=== PATIENT | male | born 1945 | race Caucasian/White ===

== ENCOUNTER 2018-01-07 06:14 | Emergency (ER) | payer MEDICARE, OTHER, SELFPAY ==
[2018-01-07 06:24] VITALS: BP 134/87; PULSE 96; RESP 15; TEMP 37; O2SAT 100; BMI 29.5
--- NOTE | 2018-01-07 06:32 | ED.MALEGU ---
HPI - Male Genitourinary <Candy Escoto DO - Last Filed: 01/07/18 21:28> General Chief complaint: Urogenital-Male Stated complaint: has catheter, has blood in urine Time Seen by Provider: 01/07/18 06:25 Source: patient Mode of arrival: ambulatory Limitations: no limitations History of Present Illness HPI Narrative: Patient is a 72-year-old male with history of prostate cancer presenting with hematuria. He had urinary retention while on vacation in [place] he had Farrar catheter placed. This morning he noted gross blood in the Farrar bag. He gets waves of pain. He is followed at [facility] for his prostate cancer. Currently no treatment. Denies any anticoagulation treatment aspirin daily Related Data Home Medications Medication Instructions Recorded Confirmed CA PANTOTHENATE/FOLIC ACID/VIT 1 tab PO QDAY #0 10/13/10 (MULTIVITAMIN) Chondroitin Sulfate (#CHONDROITIN 1,200 mg PO Q DAY #0 10/13/10 SULFATE) Fish Oil (#EPA FISH OIL) 1,000 mg PO Q DAY #0 10/13/10 Glucosamine Sulfate (GLUCOSAMINE) 1,500 mg PO Q DAY #0 10/13/10 VITAMIN B COMPLEX/FOLATE (B-100 1 tab PO Q DAY #0 10/13/10 COMPLEX) aspirin [Ecotrin] 325 mg PO Q DAY #0 01/10/16 [CELERY SEED OIL] #0 05/19/17 [MAGNESIUM] 300 mg PO QDAY #0 05/19/17 [MILK THISTLE] 450 mg PO QDAY #0 05/19/17 [PROBIOTIC] #0 05/19/17 cholecalciferol (vitamin D3) #0 05/19/17 coenzyme Q10 [Co Q-10] 100 mg PO #0 05/19/17 vitamin B complex [B 1 tab PO QDAY #0 05/19/17 Complex-Vitamin B12] Previous Rx's Medication Instructions Recorded atorvastatin [Lipitor] 2,020 mg PO HS #90 tab 09/02/17 Allergies Allergy/AdvReac Type Severity Reaction Status Date / Time tetracycline [TETRACYCLINE] Allergy Unknown Unverified 09/23/17 12:17 ACID BLOCKERS PPI H2 AdvReac Unknown Uncoded 09/23/17 12:17 Review of Systems <DO Nicole Aguilar Last Filed: 01/07/18 21:28> Review of Systems GENERAL: Denies chills,fever HEENT: Denies throat pain RESPIRATORY: Denies dyspnea, cough, wheezing CARDIOVASCULAR: Denies chest pain, palpitations GASTROINTESTINAL: Denies nausea, vomiting : See HPI MUSCULOSKELETAL: Denies extremity pain, injury SKIN: No rash, no laceration, no pruritus NEUROLOGIC: Denies weakness, dizziness, headache, numbness 8 point review of systems is negative except for those stated above and HPI Exam <Candy Escoto DO - Last Filed: 01/07/18 21:28> Initial Vital Signs Initial Vital Signs: Vital Signs Temperature 98.6 F 01/07/18 06:24 Pulse Rate 96 H 01/07/18 06:24 Respiratory Rate 15 01/07/18 06:24 Blood Pressure 134/87 H 01/07/18 06:24 Pulse Oximetry 100 01/07/18 06:24 GENERAL: Well-appearing, well-nourished and in no acute distress. CARDIOVASCULAR: peripheral pulses in tact, cap refill <2 sec RESPIRATORY: No respiratory distress, speaks in full sentences without difficulty : Gross blood in Farrar catheter and bag. EXTREMITIES: Normal range of motion, no clubbing or edema. Neurovascularly intact NEUROLOGICAL: Cranial nerves II through XII grossly intact. Normal gait and speech. SKIN: Warm, dry, no petechiae, no rashes or lesions. <Jaren Swann DO - Last Filed: 01/07/18 07:15> Initial Vital Signs Initial Vital Signs: Vital Signs Temperature 98.6 F 01/07/18 06:24 Pulse Rate 96 H 01/07/18 06:24 Respiratory Rate 15 01/07/18 06:24 Blood Pressure 134/87 H 01/07/18 06:24 Pulse Oximetry 100 01/07/18 06:24 Course <Candy Escoto DO - Last Filed: 01/07/18 21:28> Vital Signs - 8 hr 01/07/18 06:24 Temperature 98.6 F Pulse Rate 96 H Respiratory Rate 15 Blood Pressure 134/87 H Pulse Oximetry 100 <Jaren Swann DO - Last Filed: 01/07/18 07:15> Vital Signs - 8 hr 01/07/18 06:24 Temperature 98.6 F Pulse Rate 96 H Respiratory Rate 15 Blood Pressure 134/87 H Pulse Oximetry 100 <Jaren Swann DO - Last Filed: 01/07/18 07:15> MDM Narrative Medical decision making narrative: Dr Swann: Received turned over from night provider. Patient has Farrar catheter in place that was placed just over 24 hr ago for urinary retention. Patient does have a history of prostate cancer. He returns today because he is having blood in his urine. The Farrar was flushed here in the ER and is now draining without problems. Patient denies taking any anticoagulation except for aspirin. He was advised to stop his aspirin for the next couple days. He is only taking this for cardiac prevention patient is anticipating a call from his urologist office today for a follow-up. We did discuss the fact that his bleeding is most likely the irritation from the Farrar on the inside of his bladder. He was instructed to increase his fluid intake. He was given return precautions. Will keep his Farrar in for now. Patient was given return precautions he expressed understanding and agreement with plan. Discharge Plan Departure Patient Disposition: Home, Self-Care Clinical Impression: Hematuria Discharge Date/Time: 01/07/18 07:29 Interventions: ED Discharge Assessment Last Done: 01/07/18 07:26 Instructions: DI for Hematuria Activity Restrictions/Additional Instructions: *You have been diagnosed with hematuria *What to do: Keep Farrar catheter in place, follow-up with your urologist to have it removed in about 1 week *Continue to take medications as directed *Follow up with your primary care provider in 2-3 days, call your urologist today to schedule follow-up appointment *Return to ER if you should have gross blood, inability this see through the tube, increased pain or any new, worsening or concerning symptoms Prescriptions: No Action CA PANTOTHENATE/FOLIC ACID/VIT (MULTIVITAMIN) 1 tab PO QDAY Qty: 0 RF: 0 Glucosamine Sulfate (GLUCOSAMINE) 1,500 mg PO Q DAY Qty: 0 RF: 0 VITAMIN B COMPLEX/FOLATE (B-100 COMPLEX) 1 tab PO Q DAY Qty: 0 RF: 0 Chondroitin Sulfate (#CHONDROITIN SULFATE) 1,200 mg PO Q DAY Qty: 0 RF: 0 Fish Oil (#EPA FISH OIL) 1,000 mg PO Q DAY Qty: 0 RF: 0 aspirin [Ecotrin] 325 MG tablet,delayed release (DR/EC) 325 mg PO Q DAY Qty: 0 RF: 0 vitamin B complex [B Complex-Vitamin B12] 1 EACH tablet 1 tab PO QDAY Qty: 0 RF: 0 coenzyme Q10 [Co Q-10] 100 MG capsule 100 mg PO Qty: 0 RF: 0 [MAGNESIUM] 300 mg PO QDAY Qty: 0 RF: 0 [MILK THISTLE] 450 mg PO QDAY Qty: 0 RF: 0 cholecalciferol (vitamin D3) 1,000 unit/spray [place],Suspension Qty: 0 RF: 0 [CELERY SEED OIL] Qty: 0 RF: 0 [PROBIOTIC] Qty: 0 RF: 0 atorvastatin [Lipitor] 20 MG tablet 2,020 mg PO HS Qty: 90 RF: 3 Referrals: Gino Sheridan MD [Non-Staff] - Chance Rosenbaum MD [Primary Care Provider] - ED Cosign/Signout <Candy Escoto DO - Last Filed: 01/07/18 21:28> Sign Out Provider Sign Out Attestation: signed out to dr swann. Still flushing Farrar catheter. Gross blood. No anticoagulation medication.
== END 2018-01-07 07:29 | disposition home or self-care (01) ==
PROVIDERS: Emergency Provider Emergency Medicine; PCP Family Medicine
DX: R31.9 Hematuria, unspecified (principal)
CPT/HCPCS: 51700; 99283

== ENCOUNTER → 2018-01-25 14:19 | Outpatient (CLI) | payer MEDICARE, OTHER, SELFPAY | PROVIDERS: PCP Family Medicine; Visit Provider Family Medicine | DX: R30.0 Dysuria (principal) | CPT/HCPCS: 87077; 87086; 87186 ==

== ENCOUNTER → 2018-02-26 15:52 | Outpatient (CLI) | payer MEDICARE, OTHER, SELFPAY ==
[2018-02-26 16:26] LABS: Bacteria Urine None Seen; RBC Urine None Seen (0-5/HPF)
[2018-02-26 16:40] LABS: Add Manual Diff / Slide Review NO; Basophils Percent Auto 0.7 % (0-2); Eosinophils Percent Auto 1.5 % (2-4); Hematocrit 44.2 % (41-53); Lymphocytes Percent Auto 34.9 % (25-40); Mean Corpuscular Hemoglobin 32.6 PG (26-34); Monocytes Percent Auto 10.4 % (3-14); Neutrophils Absolute Auto 3100 /uL (3000-5900); Neutrophils Percent Auto 52.5 % (50-75); Platelet Count 220 X10^3/uL (150-400); Red Cell Distribution Width 13.6 % (11.6-14.8); White Blood Cell Count 5.9 X10^3/uL (4.5-11.0)
[2018-02-26 17:00] LABS: Alanine Aminotransferase 49 IU/L (21-72); Albumin 4.8 g/dL (3.5-5.0); Albumin Globulin Ratio 1.8 (1.0-2.8); Alkaline Phosphatase 63 U/L (38-126); Aspartate Aminotransferase 40 IU/L (17-59); BUN Creatinine Ratio 16.4 (6-22); Blood Urea Nitrogen 18 mg/dL (9-20); Calcium 10.2 mg/dL (8.4-10.2); Carbon Dioxide 27 mmol/L (22-32); Chloride 104 mmol/L (98-107); Cholesterol 159 mg/dL (140-199); Estimated Glomerular Filt Rate > 60.0 mL/min (>60); Globulin 2.6 g/dL (1.7-4.1); Glucose 95 mg/dL (80-110); HDL Cholesterol 82 mg/dL (40-60); HEMOLYSIS 18 (0-50); LDL Cholesterol Calculated 55 mg/dL (<100); Potassium 5.1 mmol/L (3.4-5.1); Sodium 143 mmol/L (137-145); Total Protein 7.4 g/dL (6.3-8.2); Triglycerides 111 mg/dL (35-150)
[2018-02-26 17:27] LABS: Appearance Urine UA CLEAR; Bilirubin Urine UA NEGATIVE (NEGATIVE); Color Urine UA YELLOW; Glucose Urine UA NEGATIVE (Normal); Ketones Urine UA TRACE (NEGATIVE); Leukocyte Esterase Urine UA NEGATIVE (NEGATIVE); Nitrite Urine UA Negative (Negative); Occult Blood Urine UA NEGATIVE (Negative); Protein Urine UA NEGATIVE (Negative); Urobilinogen Urine UA 0.2 E.U./dL (0.2); pH Urine UA 6.5 (4.5-8.0)
[2018-02-26 17:29] LABS: Culture Indicated Urine Cult Not Indicated; Squamous Epithelial Cell Urine 0-1 /HPF; WBC Urine 1-5/HPF (0-5/HPF)
[2018-02-26 17:30] LABS: Thyroid Stimulating Hormone 2.08 uIU/mL (0.47-4.68)
[2018-02-26 18:04] LABS: Hep C Virus Ab w/Reflex Quant NEGATIVE s/c (NEGATIVE)
== END ==
PROVIDERS: PCP Family Medicine; Visit Provider Family Medicine
DX: C61 Malignant neoplasm of prostate (principal); E78.00 Pure hypercholesterolemia, unspecified; M10.9 Gout, unspecified; Z11.59 Encounter for screening for other viral diseases; Z13.29 Encounter for screening for other suspected endocrine disorder; Z51.81 Encounter for therapeutic drug level monitoring; Z86.73 Personal history of transient ischemic attack (TIA), and cerebral infarction without residual deficits
CPT/HCPCS: 36415; 80053; 80061; 81001; 84443; 85025; 86803

== ENCOUNTER → 2018-03-31 09:52 | Outpatient (CLI) | payer MEDICARE, OTHER, SELFPAY ==
--- NOTE | 2018-03-31 09:54 | DI.RAD.S_ITS ---
PROCEDURE: XR CHEST 2V INDICATIONS: chest pain r/t inspiration TECHNIQUE: 2 views of the chest were acquired. COMPARISON: [facility], , CHEST 2 VIEW, 05/26/2013, 8:00. FINDINGS: Surgical changes and devices: None. Lungs and pleura: No pleural effusions or pneumothorax. Lungs are clear. Mediastinum: Mediastinal contours are normal. Heart size is normal. Bones and chest wall: No suspicious bony abnormalities. Soft tissues appear unremarkable. IMPRESSION: Normal chest plain films. Stable from prior. Dictated by: Rey Alas M.D. on 03/31/2018 at 9:15 Approved by: Rey Alas M.D. on 03/31/2018 at 9:15
== END ==
PROVIDERS: PCP Student in an Organized Health Care Education/Training Program; Visit Provider Nurse Practitioner Family
DX: R07.89 Other chest pain (principal)
CPT/HCPCS: 71046

== ENCOUNTER 2018-04-13 22:05 | Emergency (ER) | payer MEDICARE, OTHER, SELFPAY ==
[2018-04-13 22:09] VITALS: BP 147/87; PULSE 68; RESP 20; TEMP 36.8; O2SAT 98
[2018-04-13 22:30] LABS: Add Manual Diff / Slide Review NO; Basophils Percent Auto 0.8 % (0-2); Eosinophils Percent Auto 1.9 % (2-4); Hematocrit 43.2 % (41-53); Hemoglobin 14.5 g/dL (13.5-17.5); Lymphocytes Percent Auto 33.3 % (25-40); Mean Corpuscular HGB Conc 33.6 % (30-36); Mean Corpuscular Hemoglobin 32.1 PG (26-34); Mean Corpuscular Volume 95.6 fL (80-100); Monocytes Percent Auto 9.3 % (3-14); Neutrophils Absolute Auto 3800 /uL (3000-5900); Neutrophils Percent Auto 54.7 % (50-75); Platelet Count 223 X10^3/uL (150-400); Red Blood Cell Count 4.52 X10^6/uL (4.5-5.9); Red Cell Distribution Width 13.4 % (11.6-14.8); White Blood Cell Count 6.9 X10^3/uL (4.5-11.0)
[2018-04-13 22:39] LABS: Alanine Aminotransferase 38 IU/L (21-72); Albumin 4.4 g/dL (3.5-5.0); Albumin Globulin Ratio 1.7 (1.0-2.8); Alkaline Phosphatase 55 U/L (38-126); Aspartate Aminotransferase 33 IU/L (17-59); Bilirubin Total 0.3 mg/dL (0.2-1.3); Blood Urea Nitrogen 20 mg/dL (9-20); Calcium 8.8 mg/dL (8.4-10.2); Carbon Dioxide 23 mmol/L (22-32); Chloride 105 mmol/L (98-107); Estimated Glomerular Filt Rate > 60.0 mL/min (>60); Globulin 2.6 g/dL (1.7-4.1); Glucose 102 mg/dL (80-110); HEMOLYSIS < 15 (0-50); Potassium 4.1 mmol/L (3.4-5.1); Sodium 141 mmol/L (137-145)
[2018-04-13 22:51] LABS: Troponin I < 0.012 ng/mL (0.01-0.034)
[2018-04-13 23:43] VITALS: BP 109/80; PULSE 80; RESP 19; O2SAT 95
--- NOTE | 2018-04-14 00:34 | ED_ITS ---
HPI - Arrhythmia/Palpitations General Chief Complaint: Arrhythmia/Palpitations Stated Complaint: Irregular heart beat Time Seen by Provider: 04/13/18 23:53 Source: patient Mode of arrival: ambulatory Limitations: no limitations History of Present Illness HPI narrative: Patient is a 73-year-old male who presents with heart palpitations. He said he had some off and on throughout the day since 0430 this morning. This morning it lasted for about an hour he had another episode lasted for about 45 min and any other shorter episode this evening. He has not had any in the ED he denies any lightheadedness dizziness or chest pain. He has no shortness of breath nausea or vomiting. MD complaint: palpitations Onset (ago): day(s) (1) Related Data Home Medications Medication Instructions Recorded Confirmed CA PANTOTHENATE/FOLIC ACID/VIT 1 tab PO QDAY #0 10/13/10 03/31/18 (MULTIVITAMIN) Chondroitin Sulfate (#CHONDROITIN 1,200 mg PO Q DAY #0 10/13/10 03/31/18 SULFATE) Fish Oil (#EPA FISH OIL) 1,000 mg PO Q DAY #0 10/13/10 03/31/18 Glucosamine Sulfate (GLUCOSAMINE) 1,500 mg PO Q DAY #0 10/13/10 03/31/18 aspirin [Ecotrin] 325 mg PO Q DAY #0 01/10/16 03/31/18 [CELERY SEED OIL] #0 05/19/17 03/31/18 [MAGNESIUM] 300 mg PO QDAY #0 05/19/17 03/31/18 [MILK THISTLE] 450 mg PO QDAY #0 05/19/17 03/31/18 [PROBIOTIC] #0 05/19/17 03/31/18 cholecalciferol (vitamin D3) #0 05/19/17 03/31/18 coenzyme Q10 [Co Q-10] 100 mg PO #0 05/19/17 03/31/18 vitamin B complex [B 1 tab PO QDAY #0 05/19/17 03/31/18 Complex-Vitamin B12] atorvastatin 20 mg tablet 20 mg PO DAILY 01/13/18 03/31/18 tamsulosin 0.4 mg capsule 0.4 mg PO DAILY 01/13/18 03/31/18 Previous Rx's Medication Instructions Recorded TDAP 0.5 ml IM ONCE #1 applictn 02/26/18 latanoprost 0.005 % eye drops 1 drop EYE-BOTH QPM #2.5 ml 02/26/18 methylprednisolone 4 mg tablets in 4 mg PO PER PKG DIR #21 each 03/31/18 a dose pack Allergies Allergy/AdvReac Type Severity Reaction Status Date / Time tetracycline [TETRACYCLINE] Allergy Severe Pustules Verified 03/31/18 09:11 on chest ACID BLOCKERS PPI H2 AdvReac Intermediate Joint Pain Uncoded 03/31/18 09:11 Review of Systems Review of Systems GENERAL: Denies chills, fatigue, malaise, fever, sweats, travel HEENT: Denies sinus pain, ear pain, sore throat, difficulty swallowing, neck pain RESPIRATORY: Denies dyspnea, cough, wheezing, hemoptysis, sputum. CARDIOVASCULAR:+ palpitations, see HPI GASTROINTESTINAL: Denies nausea, vomiting, abdominal pain, diarrhea, constipation, melena. : Denies dysuria, frequency, incontinence, hematuria, urinary retention, flank pain. MUSCULOSKELETAL: Denies weakness, joint pain, or bony pain SKIN: No rash, no erythema, no pruritus NEUROLOGIC: Denies weakness, dizziness, headache, numbness, change in speech, confusion PSYCHIATRIC: No concerning psychosocial issues. 12 point review of systems is negative except for those stated above and HPI [facility] Medical History Prostate cancer (Acute 2014) Diverticular disease (Chronic 2010) Elevated PSA (Chronic 2013) GERD (gastroesophageal reflux disease) (Chronic Unknown) Gout (Chronic 2014) Herpes (Chronic 1977) Sleep apnea (Chronic Unknown) Tinnitus of both ears (Chronic 2011) Ankle pain (Resolved 2014) Chickenpox (Resolved) Foot pain (Resolved 2014) Measles (Resolved) Mumps (Resolved) Peptic ulcer (Resolved Unknown) Shoulder pain (Resolved 2014) TIA (transient ischemic attack) (Resolved ~2017) Surgical History Hx of appendectomy (Resolved 2013) Hx of hernia repair (Resolved 1994) Hx of surgical procedure (Resolved 1985) Family History Mother Age: 94 Parkinsons disease Father No problems noted. Brother No problems noted. Sister No problems noted. Grandfather Parkinsons disease Social History Smoking Status: Former smoker alcohol intake: current Exam Initial Vital Signs Initial Vital Signs: Vital Signs Temperature 98.2 F 04/13/18 22:09 Pulse Rate 68 04/13/18 22:09 Respiratory Rate 20 04/13/18 22:09 Blood Pressure 147/87 H 04/13/18 22:09 Pulse Oximetry 98 04/13/18 22:09 GENERAL: Overall well-appearing male alert oriented x3 no acute distress HEENT: Head atraumatic,EOMI, pupils reactive, face symmetric, neck is supple no JVD CARDIOVASCULAR: Regular rate and rhythm without murmurs, rubs or gallops. RESPIRATORY: Breath sounds equal bilaterally, no wheezes rales or rhonchi. ABDOMEN: Soft, nontender. Normoactive bowel sounds all 4 quadrants. No guarding or rebound. EXTREMITIES: Normal range of motion, no clubbing or edema. Neurovascularly intact NEUROLOGICAL: Alert and oriented x4.Normal gait and speech. Cranial nerves II through XII grossly intact. SKIN: Warm, dry, no laceration, no petechiae, no rashes or lesions. Course Orders Ordered: ED Orders 04/13/18 22:11 EKG-12 Lead Stat Vital Signs - 8 hr 04/13/18 22:09 04/13/18 23:43 04/14/18 01:14 Temperature 98.2 F Pulse Rate 68 80 78 Respiratory Rate 20 19 15 Blood Pressure 147/87 H 118/64 Blood Pressure [Right Arm] 109/80 Pulse Oximetry 98 95 98 MDM - Arrhythmia/Palpitations Medical Records Attestation: I reviewed the patient's medical records. Lab Data Attestation: I reviewed the patient's lab results. Result diagrams: 04/13/18 20:15 04/13/18 20:15 Lab Results 04/13/18 04/13/18 Range/Units 20:15 20:15 WBC 6.9 (4.5-11.0) X10^3/uL RBC 4.52 (4.5-5.9) X10^6/uL Hgb 14.5 (13.5-17.5) g/dL Hct 43.2 (41-53) % MCV 95.6 (80-100) fL MCH 32.1 (26-34) PG MCHC 33.6 (30-36) % RDW 13.4 (11.6-14.8) % Plt Count 223 (150-400) X10^3/uL Neut % (Auto) 54.7 (50-75) % Lymph % (Auto) 33.3 (25-40) % [place] % (Auto) 9.3 (3-14) % Eos % (Auto) 1.9 L (2-4) % Baso % (Auto) 0.8 (0-2) % Neut # (Auto) 3800 (3813-0630) /uL Sodium 141 (137-145) mmol/L Potassium 4.1 (3.4-5.1) mmol/L Chloride 105 (98-107) mmol/L Carbon Dioxide 23 (22-32) mmol/L BUN 20 (9-20) mg/dL Creatinine 1.00 (0.66-1.25) mg/dL Estimated GFR > 60.0 (>60) mL/min BUN/Creatinine Ratio 20.0 (6-22) Glucose 102 (80-110) mg/dL Calcium 8.8 (8.4-10.2) mg/dL Total Bilirubin 0.3 (0.2-1.3) mg/dL AST 33 (17-59) IU/L ALT 38 (21-72) IU/L Alkaline Phosphatase 55 (38-126) U/L Troponin I < 0.012 (0.01-0.034) ng/mL Total Protein 7.0 (6.3-8.2) g/dL Albumin 4.4 (3.5-5.0) g/dL Globulin 2.6 (1.7-4.1) g/dL Albumin/Globulin Ratio 1.7 (1.0-2.8) ECG Data Attestation: I personally reviewed and interpreted this ECG as follows: Prior ECG tracings: available for review Interpretation: Sinus rhythm rate [address] changes appear interval 143 QRS 142 QTC 442 right bundle-branch block noted which is new from previous EKGs. No acute ischemia appreciated MDM Narrative Medical decision making narrative: Patient has not felt heart palpitations since he has been in the ED. No PVCs happen noted on the monitor. I discussed with him possible need for Holter monitor. Recommend he discuss this with his PCP. Discharge Plan Departure Patient Disposition: Home Clinical Impression: Heart palpitations Discharge Date/Time: 04/14/18 01:14 Interventions: ED Discharge Assessment Last Done: 04/14/18 01:14 Instructions: DI for Palpitations Activity Restrictions/Additional Instructions: *You have been diagnosed with Heart palpitations *What to do: caffeine and alcohol and dehydration can cause palpitations. may require a Holter monitor, please discuss this with your primary provider *Continue to take medications as directed *Follow up with your primary care provider in 2-3 days *Return to ER if you should have persistent ongoing heart palpitations, dizziness, lightheadedness, passing out any new, worsening or concerning symptoms Prescriptions: No Action latanoprost 0.005 % drops 1 drop EYE-BOTH QPM Qty: 2.5 RF: 0 TDAP 0.5 ml IM ONCE Qty: 1 RF: 0 methylprednisolone [Medrol (Bill)] 4 mg tablets,dose pack 4 mg PO PER PKG DIR Qty: 21 RF: 0 atorvastatin 20 mg tablet 20 mg PO DAILY RF: 0 tamsulosin 0.4 mg capsule 0.4 mg PO DAILY RF: 0 CA PANTOTHENATE/FOLIC ACID/VIT (MULTIVITAMIN) 1 tab PO QDAY Qty: 0 RF: 0 Glucosamine Sulfate (GLUCOSAMINE) 1,500 mg PO Q DAY Qty: 0 RF: 0 Chondroitin Sulfate (#CHONDROITIN SULFATE) 1,200 mg PO Q DAY Qty: 0 RF: 0 Fish Oil (#EPA FISH OIL) 1,000 mg PO Q DAY Qty: 0 RF: 0 aspirin [Ecotrin] 325 MG tablet,delayed release (DR/EC) 325 mg PO Q DAY Qty: 0 RF: 0 vitamin B complex [B Complex-Vitamin B12] 1 EACH tablet 1 tab PO QDAY Qty: 0 RF: 0 coenzyme Q10 [Co Q-10] 100 MG capsule 100 mg PO Qty: 0 RF: 0 [MAGNESIUM] 300 mg PO QDAY Qty: 0 RF: 0 [MILK THISTLE] 450 mg PO QDAY Qty: 0 RF: 0 cholecalciferol (vitamin D3) 1,000 unit/spray [place],Suspension Qty: 0 RF: 0 [CELERY SEED OIL] Qty: 0 RF: 0 [PROBIOTIC] Qty: 0 RF: 0
[2018-04-14 01:14] VITALS: BP 118/64; PULSE 78; RESP 15; O2SAT 98
== END 2018-04-14 01:14 | disposition home or self-care (01) ==
PROVIDERS: Emergency Provider Emergency Medicine; PCP Student in an Organized Health Care Education/Training Program
DX: R00.2 Palpitations (principal)
CPT/HCPCS: 36591; 80053; 84484; 85025; 93005; 99282; 99284

== ENCOUNTER 2018-06-08 00:49 | Emergency (ER) | payer MEDICARE, OTHER, SELFPAY ==
[2018-06-08 00:59] VITALS: BP 170/108; PULSE 95; RESP 18; O2SAT 96
--- NOTE | 2018-06-08 01:26 | PC.NURSE ---
Pt s/p prostate biopsy, blood is expected in urine, not sent for micro per [facility].
--- NOTE | 2018-06-08 01:31 | PC.NURSE ---
Pt tolerated placment of catheter well, returned 800ML urine, sample dipped for UA. Pt reports feeling much better, all bladder pressure is gone.
--- NOTE | 2018-06-08 01:38 | ED.MALEGU ---
HPI - Male Genitourinary General Chief complaint: Urogenital-Male Stated complaint: unable to urinate/painful Time Seen by Provider: 06/08/18 01:15 Source: patient Mode of arrival: ambulatory Limitations: no limitations History of Present Illness HPI Narrative: Is a 73-year-old male comes to the emergency department with complaint of inability to urinate. Patient states he has a history of prostate cancer and BPH. He had a prostate biopsy on the 23 of May, he had a lot of hematuria after that but it had improved. Patient states that he had several episodes of diarrhea today and then he noticed he was having more difficulty urinating. He states that this evening he does could urinate and it got worse and more uncomfortable. He has not had any fevers, he denies any nausea or vomiting. He denies any abdominal pain other than the urge to urinate. Patient has denies any flank pain. He denies any testicular pain. Patient has been seeing Urology [facility]. He has an appointment on June 18 with them for follow-up. Patient is already on Flomax for prior episode of urinary retention. He has not started any new medications. He takes atorvastatin for his lipids and no other daily medications. Related Data Home Medications Medication Instructions Recorded Confirmed CA PANTOTHENATE/FOLIC ACID/VIT 1 tab PO QDAY #0 10/13/10 03/31/18 (MULTIVITAMIN) Chondroitin Sulfate (#CHONDROITIN 1,200 mg PO Q DAY #0 10/13/10 03/31/18 SULFATE) Fish Oil (#EPA FISH OIL) 1,000 mg PO Q DAY #0 10/13/10 03/31/18 Glucosamine Sulfate (GLUCOSAMINE) 1,500 mg PO Q DAY #0 10/13/10 03/31/18 aspirin [Ecotrin] 325 mg PO Q DAY #0 01/10/16 03/31/18 [CELERY SEED OIL] #0 05/19/17 03/31/18 [MAGNESIUM] 300 mg PO QDAY #0 05/19/17 03/31/18 [MILK THISTLE] 450 mg PO QDAY #0 05/19/17 03/31/18 [PROBIOTIC] #0 05/19/17 03/31/18 cholecalciferol (vitamin D3) #0 05/19/17 03/31/18 coenzyme Q10 [Co Q-10] 100 mg PO #0 05/19/17 03/31/18 vitamin B complex [B 1 tab PO QDAY #0 05/19/17 03/31/18 Complex-Vitamin B12] atorvastatin 20 mg tablet 20 mg PO DAILY 01/13/18 06/08/18 tamsulosin 0.4 mg capsule 0.4 mg PO DAILY 01/13/18 06/08/18 Previous Rx's Medication Instructions Recorded TDAP 0.5 ml IM ONCE #1 applictn 02/26/18 latanoprost 0.005 % eye drops 1 drop EYE-BOTH QPM #2.5 ml 02/26/18 methylprednisolone 4 mg tablets in 4 mg PO PER PKG DIR #21 each 03/31/18 a dose pack Allergies Allergy/AdvReac Type Severity Reaction Status Date / Time Latex, Natural Rubber Allergy Severe Blister Verified 06/08/18 01:05 tetracycline [TETRACYCLINE] Allergy Severe Pustules Verified 06/08/18 01:05 on chest ACID BLOCKERS PPI H2 AdvReac Intermediate Joint Pain Uncoded 06/08/18 01:05 Review of Systems Review of Systems All systems reviewed & are unremarkable except as noted in HPI and below Constitutional Denies chills and Denies fever(s) Gastrointestinal Gastrointestinal: Denies abdominal pain, Denies change in bowel habits, Reports diarrhea (Several loose stools), Denies nausea and Denies vomiting Genitourinary Reports as per HPI, Reports hematuria (Resolved), Reports difficulty urinating, Denies genital pain, Denies dysuria, Denies flank pain, Denies penile discharge, Denies testicular pain, Denies urinary frequency, Reports urinary hesitancy and Denies urinary incontinence Musculoskeletal Denies back pain [facility] Medical History Prostate cancer (Acute 2014) Diverticular disease (Chronic 2010) Elevated PSA (Chronic 2013) GERD (gastroesophageal reflux disease) (Chronic Unknown) Gout (Chronic 2014) Herpes (Chronic 1977) Sleep apnea (Chronic Unknown) Tinnitus of both ears (Chronic 2011) Ankle pain (Resolved 2014) Chickenpox (Resolved) Foot pain (Resolved 2014) Measles (Resolved) Mumps (Resolved) Peptic ulcer (Resolved Unknown) Shoulder pain (Resolved 2014) TIA (transient ischemic attack) (Resolved ~2017) Surgical History Hx of appendectomy (Resolved 2013) Hx of hernia repair (Resolved 1994) Hx of surgical procedure (Resolved 1985) Social History Smoking Status: Former smoker alcohol intake: current Exam Narrative Exam Narrative: GENERAL: Alert and oriented x three, well-nourished, well-appearing male in moderate distress. HEENT: Head normocephalic, atraumatic, EOMI, pupils reactive, face symmetric, moist mucous membranes NECK: Supple, full range of motion CARDIOVASCULAR: Regular rate and rhythm without murmurs, rubs or gallops. RESPIRATORY: Breath sounds equal bilaterally, no wheezes rales or rhonchi. ABDOMEN: Soft, nontender. Normoactive bowel sounds all 4 quadrants. No guarding or rebound, rigidity, no mass : No CVA tenderness. Male: normal external examination, uncircumcised, no penile discharge or lesions, testicles non-tender, cremasteric reflex intact, no inguinal hernias noted. EXTREMITIES: Normal range of motion, no clubbing or edema. Neurovascularly intact NEUROLOGICAL: Cranial nerves II through XII grossly intact. Moving all extremities SKIN: Warm, dry, no petechiae, no rashes or lesions. Initial Vital Signs Initial Vital Signs: Vital Signs Pulse Rate 95 H 06/08/18 00:59 Respiratory Rate 18 06/08/18 00:59 Blood Pressure 170/108 H 06/08/18 00:59 Pulse Oximetry 96 06/08/18 00:59 Course Orders Ordered: ED Orders 06/08/18 01:15 Urine Microscopic Stat Vital Signs - 8 hr 06/08/18 00:59 Pulse Rate 95 H Respiratory Rate 18 Blood Pressure 170/108 H Pulse Oximetry 96 MDM - Male Genitourinary Lab Data Attestation: I reviewed the patient's lab results. Lab Results 06/08/18 Range/Units 01:15 Urine RBC 5-10/hpf H (0-5/HPF) Urine WBC 0-1/hpf (0-5/HPF) Urine Bacteria None seen (None) Ur Culture Indicated? Cult not indicated Micro UA Comment Not Reportable Urine Dip Bedside Urine Glucose Negative Bedside Urine Bilirubin - Negative Bedside Urine Ketone - Negative Urine Specific [place] 1.020 Bedside Urine Occult Blood ++ Bedside Urine pH 6.0 Bedside Urine Protein - Negative Bedside Urine Urobilinogen - Negative Bedside Urine Nitrite - Negative Bedside Urine Leukocytes - Negative Esterase MDM Narrative Medical decision making narrative: Farrar catheter was placed with about 500 cc of urine output. Patient felt much more comfortable. He is on Flomax, he has urologic follow-up. Asked to contact his urologist tomorrow or the following day for closer follow-up. Um so he can have removal of his catheter. Patient has had a leg bag before and feels comfortable with Farrar care. Discharge Plan Departure Patient Disposition: Home Clinical Impression: Acute urinary retention Discharge Date/Time: 06/08/18 02:25 Instructions: DI for Urinary Retention in Men Activity Restrictions/Additional Instructions: Follow-up with urologist, call or contact them for an appointment tomorrow or Thursday. Continue Flomax as prescribed. Return to the emergency department for recurrent obstruction, if you're Farrar catheter is not draining urine, new abdominal or pelvic pain, fevers, chest pain or shortness of breath, persistent vomiting or other new or concerning symptoms. Prescriptions: No Action latanoprost 0.005 % drops 1 drop EYE-BOTH QPM Qty: 2.5 RF: 0 TDAP 0.5 ml IM ONCE Qty: 1 RF: 0 methylprednisolone [Medrol (Bill)] 4 mg tablets,dose pack 4 mg PO PER PKG DIR Qty: 21 RF: 0 atorvastatin 20 mg tablet 20 mg PO DAILY RF: 0 tamsulosin 0.4 mg capsule 0.4 mg PO DAILY RF: 0 CA PANTOTHENATE/FOLIC ACID/VIT (MULTIVITAMIN) 1 tab PO QDAY Qty: 0 RF: 0 Glucosamine Sulfate (GLUCOSAMINE) 1,500 mg PO Q DAY Qty: 0 RF: 0 Chondroitin Sulfate (#CHONDROITIN SULFATE) 1,200 mg PO Q DAY Qty: 0 RF: 0 Fish Oil (#EPA FISH OIL) 1,000 mg PO Q DAY Qty: 0 RF: 0 aspirin [Ecotrin] 325 MG tablet,delayed release (DR/EC) 325 mg PO Q DAY Qty: 0 RF: 0 vitamin B complex [B Complex-Vitamin B12] 1 EACH tablet 1 tab PO QDAY Qty: 0 RF: 0 coenzyme Q10 [Co Q-10] 100 MG capsule 100 mg PO Qty: 0 RF: 0 [MAGNESIUM] 300 mg PO QDAY Qty: 0 RF: 0 [MILK THISTLE] 450 mg PO QDAY Qty: 0 RF: 0 cholecalciferol (vitamin D3) 1,000 unit/spray [place],Suspension Qty: 0 RF: 0 [CELERY SEED OIL] Qty: 0 RF: 0 [PROBIOTIC] Qty: 0 RF: 0 Referrals: Ingrid Costello DO [Primary Care Provider] -
[2018-06-08 01:53] LABS: Bacteria Urine None Seen
[2018-06-08 02:04] LABS: Culture Indicated Urine Cult Not Indicated; RBC Urine 5-10/HPF (0-5/HPF); WBC Urine 0-1/HPF (0-5/HPF)
[2018-06-08 02:24] VITALS: BP 135/82; PULSE 78; RESP 16; O2SAT 99
== END 2018-06-08 02:25 | disposition home or self-care (01) ==
PROVIDERS: Emergency Provider Emergency Medicine; PCP Family Medicine
DX: R33.9 Retention of urine, unspecified (principal)
CPT/HCPCS: 51798; 81003; 81015; 99283

== ENCOUNTER → 2018-06-14 12:01 | Outpatient (CLI) | payer MEDICARE, OTHER, SELFPAY | PROVIDERS: PCP Family Medicine; Visit Provider Family Medicine | DX: R30.0 Dysuria (principal) | CPT/HCPCS: 87077; 87086; 87186 ==

== ENCOUNTER → 2018-07-15 11:14 | Outpatient (CLI) | payer MEDICARE, OTHER, SELFPAY ==
[2018-07-15 12:56] LABS: Appearance Urine UA CLOUDY; Bilirubin Urine UA NEGATIVE (NEGATIVE); Color Urine UA YELLOW; Glucose Urine UA NEGATIVE (Negative); Ketones Urine UA NEGATIVE (NEGATIVE); Leukocyte Esterase Urine UA 2+ (NEGATIVE); Nitrite Urine UA POSITIVE (Negative); Occult Blood Urine UA TRACE-LYSED (Negative); Protein Urine UA NEGATIVE (Negative); Specific Gravity Urine UA 1.015 (1.000-1.035); Urobilinogen Urine UA 0.2 E.U./dL (0.2)
[2018-07-15 13:02] LABS: Amorphous Sediment Urine 1+; Bacteria Urine Many (>30); Culture Indicated Urine Specimen Cultured; RBC Urine 1-5/HPF (0-5/HPF); Squamous Epithelial Cell Urine 0-1 /HPF; WBC Urine >100/HPF (0-5/HPF)
== END ==
PROVIDERS: PCP Family Medicine; Visit Provider Family Medicine
DX: Z87.440 Personal history of urinary (tract) infections (principal)
CPT/HCPCS: 81003; 81015; 87077; 87086; 87186

== ENCOUNTER → 2018-08-27 10:02 | Outpatient (CLI) | payer MEDICARE, OTHER, SELFPAY ==
[2018-08-27 11:49] LABS: Alanine Aminotransferase 41 IU/L (21-72); Albumin 4.5 g/dL (3.5-5.0); Albumin Globulin Ratio 1.7 (1.0-2.8); Alkaline Phosphatase 67 U/L (38-126); Aspartate Aminotransferase 27 IU/L (17-59); Bilirubin Total 0.6 mg/dL (0.2-1.3); Blood Urea Nitrogen 18 mg/dL (9-20); Calcium 9.4 mg/dL (8.4-10.2); Carbon Dioxide 25 mmol/L (22-32); Chloride 103 mmol/L (98-107); Cholesterol 149 mg/dL (140-199); Estimated Glomerular Filt Rate > 60.0 mL/min (>60); Globulin 2.7 g/dL (1.7-4.1); Glucose 100 mg/dL (80-110); HDL Cholesterol 71 mg/dL (40-60); HEMOLYSIS < 15 (0-50); LDL Cholesterol Calculated 60 mg/dL (<100); Potassium 4.5 mmol/L (3.4-5.1); Sodium 139 mmol/L (137-145); Total Protein 7.2 g/dL (6.3-8.2); Triglycerides 91 mg/dL (35-150); Uric Acid 7.4 mg/dL (3.5-8.5)
== END ==
PROVIDERS: PCP Family Medicine; Visit Provider Family Medicine
DX: E78.00 Pure hypercholesterolemia, unspecified (principal); M10.9 Gout, unspecified
CPT/HCPCS: 36415; 80053; 80061; 84550

== ENCOUNTER → 2019-02-09 09:09 | Outpatient (CLI) | payer MEDICARE, OTHER, SELFPAY ==
--- NOTE | 2019-02-09 | DI.RAD.S_ITS ---
PROCEDURE: XR LUMBAR SPINE 2-3V INDICATIONS: low back pain TECHNIQUE: 3 views of the lumbar spine were acquired. COMPARISON: None. FINDINGS: Bones: 5 [id number]-[id number] vertebrae are present. Multilevel grade one retrolisthesis. Multilevel disc degeneration, most notably in moderate to severe at the L3-L4 level. Moderate L5-S1 facet joint arthropathy. No vertebral body compression fractures. No suspicious bony lesions. Soft tissues: Overlying bowel gas pattern is normal. No suspicious soft tissue calcifications. IMPRESSION: Multilevel degenerative change. Dictated by: Luke Hugo [facility] Interpreted: Spencer Bashir MD on 02/09/2019 at 10:40 Approved by: Spencer Bashir M.D. on 02/09/2019 at 11:40
== END ==
PROVIDERS: PCP Family Medicine; Visit Provider Chiropractor
DX: M54.5 Low back pain (principal)
CPT/HCPCS: 72100

== ENCOUNTER → 2019-02-24 09:58 | Outpatient (CLI) | payer MEDICARE, OTHER, SELFPAY ==
[2019-02-24 10:36] LABS: Alanine Aminotransferase 40 IU/L (21-72); Albumin 4.5 g/dL (3.5-5.0); Albumin Globulin Ratio 1.6 (1.0-2.8); Alkaline Phosphatase 59 U/L (38-126); Aspartate Aminotransferase 39 IU/L (17-59); BUN Creatinine Ratio 17.3 (6-22); Bilirubin Total 0.8 mg/dL (0.2-1.3); Blood Urea Nitrogen 19 mg/dL (9-20); Calcium 9.5 mg/dL (8.4-10.2); Carbon Dioxide 27 mmol/L (22-32); Chloride 105 mmol/L (98-107); Cholesterol 163 mg/dL (140-199); Estimated Glomerular Filt Rate > 60.0 mL/min (>60); Globulin 2.9 g/dL (1.7-4.1); Glucose 102 mg/dL (80-110); HDL Cholesterol 74 mg/dL (40-60); HEMOLYSIS < 15 (0-50); LDL Cholesterol Calculated 68 mg/dL (<100); Potassium 4.1 mmol/L (3.4-5.1); Sodium 141 mmol/L (137-145); Total Protein 7.4 g/dL (6.3-8.2); Triglycerides 104 mg/dL (35-150); Uric Acid 8.4 mg/dL (3.5-8.5)
[2019-02-24 11:20] LABS: Thyroid Stimulating Hormone 3.04 uIU/mL (0.47-4.68)
== END ==
PROVIDERS: PCP Family Medicine; Visit Provider Family Medicine
DX: E78.00 Pure hypercholesterolemia, unspecified (principal); M25.571 Pain in right ankle and joints of right foot; M25.572 Pain in left ankle and joints of left foot; M79.671 Pain in right foot; M79.672 Pain in left foot
CPT/HCPCS: 36415; 80053; 80061; 84443; 84550

== ENCOUNTER → 2019-06-01 10:22 | Outpatient (CLI) | payer MEDICARE, OTHER, SELFPAY ==
[2019-06-01 11:05] LABS: Add Manual Diff / Slide Review NO; Basophils Absolute Auto 100 /uL (0-100); Basophils Percent Auto 0.8 % (0-2); Eosinophils Absolute Auto 200 /uL (0-450); Eosinophils Percent Auto 2.5 % (2-4); Hematocrit 45.1 % (41-53); Hemoglobin 15.4 g/dL (13.5-17.5); Lymphocytes Absolute Auto 2300 /uL (1100-4500); Lymphocytes Percent Auto 33.4 % (25-40); Mean Corpuscular HGB Conc 34.1 % (30-36); Mean Corpuscular Hemoglobin 32.6 PG (26-34); Mean Corpuscular Volume 95.7 fL (80-100); Monocytes Absolute Auto 700 /uL (0-900); Monocytes Percent Auto 10.6 % (3-14); Neutrophils Absolute Auto 3700 /uL (1500-7000); Neutrophils Percent Auto 52.7 % (50-75); Platelet Count 231 X10^3/uL (150-400); Red Blood Cell Count 4.72 X10^6/uL (4.5-5.9); White Blood Cell Count 6.9 X10^3/uL (4.5-11.0)
[2019-06-01 11:25] LABS: Erythrocyte Sedimentation Rate 23 MM/HR (0-15)
[2019-06-01 11:39] LABS: Alanine Aminotransferase 28 IU/L (<50); Albumin 4.9 g/dL (3.5-5.0); Albumin Globulin Ratio 1.6 (1.0-2.8); Alkaline Phosphatase 72 U/L (38-126); Aspartate Aminotransferase 31 IU/L (17-59); BUN Creatinine Ratio 17.7 (6-22); Bilirubin Total 0.8 mg/dL (0.2-1.3); Blood Urea Nitrogen 23 mg/dL (9-20); Calcium 9.7 mg/dL (8.4-10.2); Carbon Dioxide 25 mmol/L (22-32); Chloride 108 mmol/L (98-107); Cholesterol 171 mg/dL (140-199); Glucose 102 mg/dL (80-110); HDL Cholesterol 68 mg/dL (40-60); HEMOLYSIS < 15 (0-50); LDL Cholesterol Calculated 80 mg/dL (<100); Sodium 144 mmol/L (137-145); Total Protein 7.9 g/dL (6.3-8.2); Triglycerides 116 mg/dL (35-150); Uric Acid 7.5 mg/dL (3.5-8.5)
[2019-06-01 11:42] LABS: Rheumatoid Factor < 8.6 IU/mL (<12.0)
== END ==
PROVIDERS: PCP Family Medicine; Visit Provider Family Medicine
DX: E78.00 Pure hypercholesterolemia, unspecified (principal); K21.9 Gastro-esophageal reflux disease without esophagitis; M25.461 Effusion, right knee; M25.561 Pain in right knee; Z87.39 Personal history of other diseases of the musculoskeletal system and connective tissue
CPT/HCPCS: 36415; 80053; 80061; 84550; 85025; 85651; 86430

== ENCOUNTER → 2019-07-13 11:07 | Outpatient (CLI) | payer MEDICARE, SELFPAY ==
[2019-07-13 12:02] LABS: BUN Creatinine Ratio 15.5 (6-22); Blood Urea Nitrogen 17 mg/dL (9-20); Calcium 9.7 mg/dL (8.4-10.2); Carbon Dioxide 24 mmol/L (22-32); Chloride 104 mmol/L (98-107); Estimated Glomerular Filt Rate > 60.0 mL/min (>60); Glucose 108 mg/dL (80-110); HEMOLYSIS < 15 (0-50); Potassium 4.2 mmol/L (3.4-5.1); Sodium 139 mmol/L (137-145)
== END ==
PROVIDERS: Family Medicine; PCP Family Medicine; Visit Provider Family Medicine
DX: N28.9 Disorder of kidney and ureter, unspecified (principal); R89.9 Unspecified abnormal finding in specimens from other organs, systems and tissues
CPT/HCPCS: 36415; 80048

== ENCOUNTER → 2019-11-26 08:18 | Outpatient (CLI) | payer MEDICARE, SELFPAY ==
[2019-11-26 09:27] LABS: Add Manual Diff / Slide Review NO; Basophils Absolute Auto 0 /uL (0-100); Basophils Percent Auto 0.7 % (0-2); Eosinophils Absolute Auto 200 /uL (0-450); Eosinophils Percent Auto 3.6 % (2-4); Hematocrit 42.3 % (41-53); Hemoglobin 14.4 g/dL (13.5-17.5); Lymphocytes Absolute Auto 1600 /uL (1100-4500); Lymphocytes Percent Auto 33.1 % (25-40); Mean Corpuscular HGB Conc 33.9 % (30-36); Mean Corpuscular Hemoglobin 32.4 PG (26-34); Mean Corpuscular Volume 95.6 fL (80-100); Monocytes Absolute Auto 500 /uL (0-900); Monocytes Percent Auto 10.6 % (3-14); Neutrophils Absolute Auto 2600 /uL (1500-7000); Platelet Count 226 X10^3/uL (150-400); Red Blood Cell Count 4.43 X10^6/uL (4.5-5.9); Red Cell Distribution Width 13.5 % (11.6-14.8)
[2019-11-26 09:41] LABS: BUN Creatinine Ratio 21.4 (6-22); Blood Urea Nitrogen 18 mg/dL (9-20); Calcium 9.1 mg/dL (8.4-10.2); Carbon Dioxide 21 mmol/L (22-32); Chloride 109 mmol/L (98-107); Cholesterol 151 mg/dL (140-199); Estimated Glomerular Filt Rate > 60.0 mL/min (>60); Glucose 114 mg/dL (80-110); HDL Cholesterol 63 mg/dL (40-60); HEMOLYSIS < 15 (0-50); LDL Cholesterol Calculated 76 mg/dL (<100); Potassium 4.2 mmol/L (3.4-5.1); Sodium 138 mmol/L (137-145); Triglycerides 59 mg/dL (35-150)
[2019-11-26 09:57] LABS: Vitamin D 25 Hydroxy (D3) 61.7 ng/mL (30.0-100.0)
== END ==
PROVIDERS: PCP Family Medicine; Referring Provider Family Medicine; Visit Provider Family Medicine
DX: C61 Malignant neoplasm of prostate (principal); E55.9 Vitamin D deficiency, unspecified; E78.00 Pure hypercholesterolemia, unspecified
CPT/HCPCS: 36415; 80048; 80061; 82306; 85025

== ENCOUNTER → 2019-11-30 09:34 | Outpatient (CLI) | payer MEDICARE, SELFPAY ==
--- NOTE | 2019-11-30 09:35 | DI.RAD.S_ITS ---
PROCEDURE: XR CHEST 2V INDICATIONS: cough TECHNIQUE: 2 views of the chest were acquired. COMPARISON: [facility] , CHEST 2 VIEW, 05/26/2013, 8:00. [facility], [place], XR CHEST 2V, 03/31/2018, 9:52. FINDINGS: Surgical changes and devices: None. Lungs and pleura: Lungs are clear. No pleural effusions or pneumothorax. Mediastinum: Mediastinal contours are normal. Heart size is normal. Bones and chest wall: No suspicious bony abnormalities. Soft tissues appear unremarkable. IMPRESSION: No pneumonia identified. Dictated by: Robert Lipscomb M.D. on 11/30/2019 at 9:54 Approved by: Robert Lipscomb M.D. on 11/30/2019 at 9:56
== END ==
PROVIDERS: PCP Family Medicine; Referring Provider Registered Nurse; Visit Provider Registered Nurse
DX: R05 Cough (principal)
CPT/HCPCS: 71046

== ENCOUNTER → 2020-02-29 12:07 | Outpatient (CLI) | payer MEDICARE, SELFPAY ==
--- NOTE | 2020-02-29 12:09 | DI.RAD.S_ITS ---
PROCEDURE: XR HIP W PEL IF DONE LT 2V INDICATIONS: pain TECHNIQUE: AP pelvis with lateral view(s) of the left hip(s). COMPARISON: None. FINDINGS: Bones: No fractures or dislocations. Pelvic ring appears intact. No suspicious bony lesions. Soft tissues: The visualized bowel gas pattern is normal. No suspicious soft tissue calcifications. IMPRESSION: Mild symmetric hip joint osteoarthritis. No trauma found. Dictated by: Benoit Beverly M.D. on 02/29/2020 at 12:36 Approved by: Benoit Beverly M.D. on 02/29/2020 at 12:36
== END ==
PROVIDERS: PCP Family Medicine; Referring Provider Family Medicine; Visit Provider Family Medicine
DX: M25.552 Pain in left hip (principal); M16.12 Unilateral primary osteoarthritis, left hip; G89.29 Other chronic pain
CPT/HCPCS: 73502

== ENCOUNTER → 2021-03-26 13:50 | Outpatient (CLI) | payer MEDICARE, SELFPAY ==
--- NOTE | 2021-03-26 | DI.CT.S_ITS ---
PROCEDURE: CT CHEST WO CON INDICATIONS: Chronic cough TECHNIQUE: Noncontrast 2.0-2.5 mm thick sections acquired from the pulmonary apices to the posterior costophrenic angles. 7 mm thick axial MIP, and 5 mm coronal and sagittal reformats were then acquired. A low radiation dose technique was utilized. COMPARISON: None. FINDINGS: Image quality: Diagnostic, given the low radiation dose technique. Lungs and pleura: No consolidation, pleural effusion, or pneumothorax. 8.4 mm linear density in the anterior aspect of the right middle lobe (series 3, image 166), which may reflect scarring. Calcified granuloma in the right upper lobe. Mediastinum: Heart size is normal. No pericardial effusion. No mediastinal adenopathy by size criteria. Thoracic aorta and central pulmonary arteries are normal in size. Esophagus is normal in caliber. No hiatal hernia. Bones and chest wall: No suspicious bony lesions. No vertebral body compression fractures. No axillary or supraclavicular adenopathy by size criteria. Thyroid gland is homogeneous. Abdomen: Visualized upper abdomen solid organs and bowel loops appear normal in the absence of contrast. IMPRESSION: 1. No significant abnormality. 2. 8.4 mm linear density in the anterior aspect of the right middle lobe, which may reflect scarring. Consider 1 year follow-up as clinically warranted based on the patient's risk factors. Dictated by: Ruben De Jesus M.D. on 03/26/2021 at 15:16 Approved by: Ruben De Jesus M.D. on 03/26/2021 at 15:24
[2021-03-26 15:05] LABS: Add Manual Diff / Slide Review NO; Basophils Absolute Auto 0 /uL (0-100); Basophils Percent Auto 0.7 % (0-2); Eosinophils Absolute Auto 100 /uL (0-450); Eosinophils Percent Auto 1.8 % (2-4); Hematocrit 43.7 % (41-53); Hemoglobin 14.7 g/dL (13.5-17.5); Lymphocytes Absolute Auto 2000 /uL (1100-4500); Lymphocytes Percent Auto 41.2 % (25-40); Mean Corpuscular HGB Conc 33.6 % (30-36); Mean Corpuscular Hemoglobin 32.6 PG (26-34); Mean Corpuscular Volume 97.1 fL (80-100); Monocytes Absolute Auto 500 /uL (0-900); Monocytes Percent Auto 9.4 % (3-14); Neutrophils Absolute Auto 2300 /uL (1500-7000); Neutrophils Percent Auto 46.9 % (50-75); Platelet Count 225 X10^3/uL (150-400); White Blood Cell Count 4.9 X10^3/uL (4.5-11.0)
[2021-03-26 16:30] LABS: Alanine Aminotransferase 37 IU/L (<50); Albumin 4.4 g/dL (3.5-5.0); Albumin Globulin Ratio 1.6 (1.0-2.8); Alkaline Phosphatase 57 U/L (38-126); Aspartate Aminotransferase 36 IU/L (17-59); BUN Creatinine Ratio 15.7 (6-22); Bilirubin Total 0.8 mg/dL (0.2-1.3); Blood Urea Nitrogen 16 mg/dL (9-20); Calcium 9.2 mg/dL (8.4-10.2); Carbon Dioxide 28 mmol/L (22-32); Chloride 107 mmol/L (98-107); Cholesterol 161 mg/dL (140-199); Estimated Glomerular Filt Rate > 60.0 mL/min (>60); Globulin 2.8 g/dL (1.7-4.1); Glucose 95 mg/dL (80-110); HDL Cholesterol 77 mg/dL (40-60); HEMOLYSIS < 15 (0-50); LDL Cholesterol Calculated 68 mg/dL (<100); Potassium 4.5 mmol/L (3.4-5.1); Sodium 141 mmol/L (137-145); Total Protein 7.2 g/dL (6.3-8.2); Triglycerides 81 mg/dL (35-150)
[2021-03-26 17:01] LABS: Thyroid Stimulating Hormone 3.67 uIU/mL (0.47-4.68)
[2021-03-27 09:36] LABS: PSA, Total < 0.1 ng/mL (0.0-4.0)
== END ==
PROVIDERS: PCP Physician Assistant; Referring Provider Physician Assistant; Visit Provider Physician Assistant
DX: R05.3 Chronic cough (principal); E78.5 Hyperlipidemia, unspecified; G60.9 Hereditary and idiopathic neuropathy, unspecified; Z85.46 Personal history of malignant neoplasm of prostate
CPT/HCPCS: 36415; 71250; 80053; 80061; 84153; 84154; 84443; 85025

== ENCOUNTER → 2021-05-16 12:10 | Outpatient (ROUT) | payer MEDICARE, SELFPAY ==
[2021-05-16 12:51] LABS: COVID19 -Nasal RAPID Negative (Negative)
== END ==
PROVIDERS: PCP Physician Assistant; Visit Provider Physician Assistant
DX: Z20.822 Contact with and (suspected) exposure to COVID-19 (principal)
CPT/HCPCS: 87635

== ENCOUNTER → 2021-11-14 12:52 | Outpatient (CLI) | payer MEDICARE, SELFPAY ==
[2021-11-15 07:09] LABS: PSA Ultrasensitive 0.012 ng/mL (0.000-4.000)
== END ==
PROVIDERS: PCP Physician Assistant; Referring Provider Student in an Organized Health Care Education/Training Program; Visit Provider Student in an Organized Health Care Education/Training Program
DX: Z85.46 Personal history of malignant neoplasm of prostate (principal)
CPT/HCPCS: 36415; 84153

== ENCOUNTER → 2022-04-23 13:44 | Outpatient (CLI) | payer MEDICARE, SELFPAY ==
--- NOTE | 2022-04-23 | DI.MRI.S_ITS ---
PROCEDURE: MR LUMBAR SPINE WO CON INDICATIONS: Spinal stenosis, lumbar region TECHNIQUE: Noncontrast sagittal T1 spin echo and T2 fast echo, sagittal STIR, and T2 fast spin echo through the lumbar spine. In cases with scoliosis, additional coronal T2 fast spin echo may be performed. COMPARISON: None. FINDINGS: Image quality: Excellent. Alignment and Curvature: There is trace retrolisthesis of L2 on L3, L3 on L4. Bone Marrow: Marrow is of normal overall signal. Mild reactive endplate changes are present at L2-3. No acute vertebral body compression fractures. Spinal Cord: Conus medullaris terminates at the L1 level. Visualized cord demonstrates normal signal and size. Paraspinous Soft Tissues: No paravertebral masses. Discs: Moderate to severe multilevel disc desiccation is present most notable at L3-4, L4-5. L1-L2: No disc bulge, spinal stenosis or foraminal narrowing. L2-L3: Mild disc bulge without spinal stenosis. Bspk-gv-vhzopnuz bilateral foraminal narrowing with facet and ligamentum flavum hypertrophy. L3-L4: Mild disc bulge with mild canal narrowing. Egae-if-gvhgditw bilateral foraminal narrowing with facet and ligamentum flavum hypertrophy. Minimal epidural lipomatosis. L4-L5: Mild disc bulge with mild spinal stenosis. Severe right and moderate left foraminal narrowing with nerve root flattening of the exiting right L4 nerve root. Facet and ligamentum flavum hypertrophy are present. L5-S1: Mild disc bulge with superimposed posterior central protrusion. Severe right and moderate left foraminal narrowing with facet and ligamentum flavum hypertrophy. There is compression of the exiting right L5 nerve root. IMPRESSION: Multilevel foraminal narrowing severe at L4-5 and L5-S1 with compression of the exiting right L4 and L5 nerve roots. Mild spinal stenosis at L3-4, L4-5 predominantly secondary to disc bulge with contributing effect of facet/ligamentum flavum arthropathy. Dictated by: Analilia Covarrubias M.D. on 04/23/2022 at 19:21 Approved by: Analilia Covarrubias M.D. on 04/23/2022 at 19:31
== END ==
PROVIDERS: PCP Family Medicine; Referring Provider Physical Medicine & Rehabilitation; Visit Provider Physical Medicine & Rehabilitation
DX: M48.061 Spinal stenosis, lumbar region without neurogenic claudication (principal); M48.07 Spinal stenosis, lumbosacral region; M51.36 Other intervertebral disc degeneration, lumbar region; M47.816 Spondylosis without myelopathy or radiculopathy, lumbar region
CPT/HCPCS: 72148

== ENCOUNTER → 2022-04-24 09:52 | Outpatient (CLI) | payer MEDICARE, SELFPAY ==
[2022-04-24 12:39] LABS: Add Manual Diff / Slide Review NO; Basophils Absolute Auto 0 /uL (0-100); Basophils Percent Auto 0.7 % (0-2); Eosinophils Absolute Auto 200 /uL (0-450); Eosinophils Percent Auto 4.6 % (2-4); Hemoglobin 14.7 g/dL (13.5-17.5); Lymphocytes Absolute Auto 2000 /uL (1100-4500); Lymphocytes Percent Auto 40.8 % (25-40); Mean Corpuscular HGB Conc 34.3 % (30-36); Mean Corpuscular Hemoglobin 32.5 PG (26-34); Mean Corpuscular Volume 94.7 fL (80-100); Monocytes Absolute Auto 500 /uL (0-900); Monocytes Percent Auto 9.5 % (3-14); Neutrophils Absolute Auto 2100 /uL (1500-7000); Neutrophils Percent Auto 44.4 % (50-75); Platelet Count 216 X10^3/uL (150-400); Red Blood Cell Count 4.54 X10^6/uL (4.5-5.9); Red Cell Distribution Width 13.3 % (11.6-14.8); White Blood Cell Count 4.8 X10^3/uL (4.5-11.0)
[2022-04-24 14:28] LABS: TSH w/ Reflex to FT4 4.88 uIU/mL (0.47-4.68)
[2022-04-24 15:01] LABS: Free T4, Direct Thyroxine 0.84 ng/dL (0.78-2.19)
[2022-04-24 15:29] LABS: Alanine Aminotransferase 36 IU/L (<50); Albumin 4.4 g/dL (3.5-5.0); Albumin Globulin Ratio 1.7 (1.0-2.8); Alkaline Phosphatase 52 U/L (38-126); Aspartate Aminotransferase 33 IU/L (17-59); BUN Creatinine Ratio 12.8 (6-22); Bilirubin Total 0.9 mg/dL (0.2-1.3); Blood Urea Nitrogen 12 mg/dL (9-20); Calcium 9.4 mg/dL (8.4-10.2); Carbon Dioxide 24 mmol/L (22-32); Chloride 103 mmol/L (98-107); Cholesterol 153 mg/dL (140-199); Estimated Glomerular Filt Rate > 60 mL/min (>60); Globulin 2.6 g/dL (1.7-4.1); Glucose 97 mg/dL (80-110); HDL Cholesterol 70 mg/dL (40-60); HEMOLYSIS < 15 (0-50); LDL Cholesterol Calculated 64 mg/dL (<100); Potassium 4.3 mmol/L (3.4-5.1); Sodium 138 mmol/L (137-145); Triglycerides 94 mg/dL (35-150)
[2022-04-24 16:32] LABS: Folate > 20.0 ng/mL (2.76-20.0); Vitamin B12 689 pg/mL (239-931); Vitamin D 25 Hydroxy (D3) 54.7 ng/mL (30.0-100.0)
[2022-04-25 08:22] LABS: PSA Ultrasensitive 0.012 ng/mL (0.000-4.000)
[2022-04-28 16:09] LABS: Interpretation Negative (Negative)
== END ==
PROVIDERS: PCP Family Medicine; Referring Provider Student in an Organized Health Care Education/Training Program; Visit Provider Student in an Organized Health Care Education/Training Program
DX: E78.5 Hyperlipidemia, unspecified (principal); R53.83 Other fatigue; Z79.899 Other long term (current) drug therapy; C61 Malignant neoplasm of prostate; K21.9 Gastro-esophageal reflux disease without esophagitis; E56.9 Vitamin deficiency, unspecified; Z85.46 Personal history of malignant neoplasm of prostate
CPT/HCPCS: 36415; 80053; 80061; 82306; 82607; 82746; 83013; 84153; 84439; 84443; 85025

== ENCOUNTER → 2022-06-23 10:18 | Outpatient (CLI) | payer MEDICARE, SELFPAY ==
[2022-06-23 11:54] LABS: COVID19 -Nasal RAPID Negative (Negative)
== END ==
PROVIDERS: PCP Family Medicine; Visit Provider Surgery
DX: Z01.812 Encounter for preprocedural laboratory examination (principal); Z20.822 Contact with and (suspected) exposure to COVID-19
CPT/HCPCS: 87635; C9803

== ENCOUNTER 2022-06-24 07:32 | Day surgery (SDC) | payer MEDICARE, SELFPAY ==
--- NOTE | 2022-06-24 | PATH_ITS ---
[facility] Accession Number: [id number] . 01 Material submitted: . esophagus, E-G Junction - GE JUNCTION BIOPSIES . 01 Diagnosis: Gastroesophageal Junction, Biopsies: Squamocolumnar junctional mucosa with no diagnostic abnormality. Negative for intestinal metaplasia. Negative for dysplasia and malignancy. . MRV 06/26/2022 1444 Local . 01 Electronically signed: . Shalonda Hanson MD, Pathologist NPI- [id number] . 01 Gross description: . GE JUNCTION BIOPSIES: Received in formalin are 2 fragment(s) of [place], soft tissue measuring 0.3 x 0.1 x 0.1 cm to 0.2 x 0.1 x 0.1 cm submitted entirely in 1 cassette(s) /CPE 06/25/2022 0933 Local . 01 Pathologist provided ICD-10: K21.9 . 01 CPT . 604528 Specimen Comment: A courtesy copy of this report has been sent to [phone] Performed at: 01 [facility] [address] [place] [address], [place], [place] [id number] MD Josse Godoy MD Phone: [phone]
[2022-06-24] MEDS: LACTATED RINGERS 1,000 ML 200 ML IV (07:50)
[2022-06-24 07:51] VITALS: BP 146/84; PULSE 66; RESP 14; TEMP 35.9; O2SAT 96; BMI 27.8
--- NOTE | 2022-06-24 08:56 | PM.PREOP ---
Pre-operative Note Interval Note History & Physical reviewed/Exam performed by Physician: Yes Changes to H&P: No
--- NOTE | 2022-06-24 09:03 | PM.OP.EGD ---
Operative Date/Time/Diagnoses Date of procedure: 06/24/22 Time of procedure: 09:03 Pre-op diagnosis: Chronic GERD Post-op diagnosis: same Procedure & Clinicians Study performed: Esophagoduodenoscopy Same procedure as scheduled: Yes Indications: Chronic GERD Surgeon: Louis Mcintyre Procedure Notes Procedure in detail: Patient placed in left lateral decubitus position. Time out was performed. Procedural sedation was administered by anesthesia. A bite block was placed. the scope was inserted into the mouth and advanced through the esophagus and into the stomach. The pylorus was intubated and the duodenum was normal to the 2nd portion. The scope was retroflexed within the stomach and there was no hiatal hernia. No ulcers, or gastritis. . Distal esophagus was mildly scarred without stricture. There was no obvious Lora's esophagus however biopsies of the GE junction which was seen at 38 cm from the incisors was performed with forceps. There was no Lora's esophagitis or masses or strictures. Stomach was desufflated and scope removed. Patient tolerated procedure well. Specimen(s): other (GE junction) Impression: Mild scarring of the distal esophagus no stricture Post-procedure Recommendations: Reflux diet Disposition: same day surgery
[2022-06-24 09:16] VITALS: BP 108/79; PULSE 71; RESP 16; TEMP 36.2; O2SAT 93
[2022-06-24 09:21] VITALS: BP 118/75; PULSE 71; RESP 23; O2SAT 93
[2022-06-24 09:26] VITALS: BP 126/76; PULSE 65; RESP 16; TEMP 36.1; O2SAT 95
[2022-06-24 09:31] VITALS: BP 120/78; PULSE 67; RESP 18; O2SAT 92
== END 2022-06-24 09:44 | disposition home or self-care (01) ==
PROVIDERS: PCP Family Medicine; Referring Provider Surgery; Visit Provider Surgery
PROC: 0DJ08ZZ Inspection of Upper Intestinal Tract, Via Natural or Artificial Opening Endoscopic (ICD-10-PCS; CPT 43235; principal; 2022-06-24 08:45)
DX: K21.9 Gastro-esophageal reflux disease without esophagitis (principal)
CPT/HCPCS: 43239; J2704

== ENCOUNTER → 2022-06-26 11:14 | Outpatient (CLI) | payer MEDICARE, SELFPAY ==
--- NOTE | 2022-06-26 11:16 | DI.CT.S_ITS ---
PROCEDURE: CT CHEST WO CON INDICATIONS: abnormal finding of lung field TECHNIQUE: Noncontrast 5 mm thick sections acquired from the pulmonary apices to the posterior costophrenic angles. 1 mm lung window, 5 mm thick coronal and sagittal and 7 mm axial MIP reformats were then acquired. For radiation dose reduction, the following was used: automated exposure control, adjustment of mA and/or kV according to patient size. COMPARISON: [facility], CT, CT CHEST WO CON, 03/26/2021, 14:16. FINDINGS: Image quality: Excellent. Lungs and pleura: No interval change. There is a focus of ground-glass opacity in the left upper lobe, (4/107). There is a focus of ground-glass opacity in the right middle lobe, (4/189). There is curvilinear streaky opacity in the right middle lobe. There is mild streaky opacity at the lung bases and right middle lobe and lingula which could be due to scarring or atelectasis. No consolidation. A few small calcified granulomas. No pleural effusions or pneumothorax. Central and peripheral airways are patent and normal in caliber. Mediastinum: Heart size is normal. No pericardial effusion. No mediastinal adenopathy by size criteria. Thoracic aorta and central pulmonary arteries are normal in size. Esophagus is normal in caliber. No hiatal hernia. Bones and chest wall: No suspicious bony lesions. No vertebral body compression fractures. No axillary or supraclavicular adenopathy by size criteria. Thyroid gland is unremarkable. Abdomen: Visualized upper abdominal solid organs and bowel loops appear normal in the absence of contrast. IMPRESSION: 1. No interval change. 2. Subcentimeter ground-glass foci are unchanged. Low suspicion. 3. No enlarged lymph nodes. Dictated by: Robert Lipscomb M.D. on 06/26/2022 at 13:37 Approved by: Robert Lipscomb M.D. on 06/26/2022 at 13:45
== END ==
PROVIDERS: PCP Family Medicine; Referring Provider Family Medicine; Visit Provider Family Medicine
DX: R91.8 Other nonspecific abnormal finding of lung field (principal)
CPT/HCPCS: 71250

== ENCOUNTER → 2022-08-26 11:52 | Outpatient (CLI) | payer MEDICARE, SELFPAY ==
[2022-08-26 13:09] LABS: HEMOLYSIS < 15 (0-50)
[2022-08-26 13:11] LABS: Add Manual Diff / Slide Review NO; Basophils Absolute Auto 0 /uL (0-100); Basophils Percent Auto 0.6 % (0-2); Eosinophils Absolute Auto 100 /uL (0-450); Eosinophils Percent Auto 2.2 % (2-4); Hematocrit 44.7 % (41-53); Lymphocytes Absolute Auto 1800 /uL (1100-4500); Lymphocytes Percent Auto 36.2 % (25-40); Mean Corpuscular HGB Conc 33.5 % (30-36); Mean Corpuscular Volume 95.7 fL (80-100); Monocytes Absolute Auto 500 /uL (0-900); Monocytes Percent Auto 9.3 % (3-14); Neutrophils Absolute Auto 2600 /uL (1500-7000); Neutrophils Percent Auto 51.7 % (50-75); Platelet Count 226 X10^3/uL (150-400); Red Blood Cell Count 4.68 X10^6/uL (4.5-5.9); Red Cell Distribution Width 13.7 % (11.6-14.8)
[2022-08-26 13:18] LABS: Alanine Aminotransferase 54 IU/L (<50); Albumin 4.5 g/dL (3.5-5.0); Albumin Globulin Ratio 1.5 (1.0-2.8); Alkaline Phosphatase 58 U/L (38-126); Aspartate Aminotransferase 39 IU/L (17-59); BUN Creatinine Ratio 18.7 (6-22); Bilirubin Total 0.8 mg/dL (0.2-1.3); Blood Urea Nitrogen 17 mg/dL (9-20); Calcium 9.4 mg/dL (8.4-10.2); Carbon Dioxide 23 mmol/L (22-32); Chloride 106 mmol/L (98-107); Cholesterol 164 mg/dL (140-199); Estimated Glomerular Filt Rate > 60 mL/min (>60); Globulin 3.1 g/dL (1.7-4.1); Glucose 102 mg/dL (80-110); HDL Cholesterol 77 mg/dL (40-60); LDL Cholesterol Calculated 69 mg/dL (<100); Potassium 4.1 mmol/L (3.4-5.1); Sodium 137 mmol/L (137-145); Total Protein 7.6 g/dL (6.3-8.2); Triglycerides 88 mg/dL (35-150)
[2022-08-27 07:10] LABS: PSA Ultrasensitive 0.014 ng/mL (0.000-4.000)
== END ==
PROVIDERS: Family Medicine; PCP Family Medicine; Referring Provider Student in an Organized Health Care Education/Training Program; Visit Provider Student in an Organized Health Care Education/Training Program
DX: Z00.00 Encounter for general adult medical examination without abnormal findings (principal); Z85.46 Personal history of malignant neoplasm of prostate; E78.00 Pure hypercholesterolemia, unspecified
CPT/HCPCS: 36415; 80053; 80061; 84153; 85025

== ENCOUNTER → 2023-03-25 09:55 | Outpatient (CLI) | payer MEDICARE, SELFPAY ==
[2023-03-25 11:21] LABS: Prostate Specific Antigen < 0.064 ng/mL (0.10-4.00)
== END ==
PROVIDERS: PCP Family Medicine; Referring Provider Student in an Organized Health Care Education/Training Program; Visit Provider Student in an Organized Health Care Education/Training Program
DX: Z85.46 Personal history of malignant neoplasm of prostate (principal)
CPT/HCPCS: 36415; 84153

== ENCOUNTER → 2023-07-09 10:06 | Outpatient (CLI) | payer MEDICARE, SELFPAY ==
[2023-07-09 11:39] LABS: Add Manual Diff / Slide Review NO; Basophils Absolute Auto 0 /uL (0-100); Basophils Percent Auto 0.8 % (0-2); Eosinophils Absolute Auto 100 /uL (0-450); Eosinophils Percent Auto 2.7 % (2-4); Hematocrit 43.5 % (41-53); Hemoglobin 14.9 g/dL (13.5-17.5); Lymphocytes Absolute Auto 2200 /uL (1100-4500); Lymphocytes Percent Auto 40.4 % (25-40); Mean Corpuscular HGB Conc 34.1 % (30-36); Mean Corpuscular Hemoglobin 32.7 PG (26-34); Mean Corpuscular Volume 95.7 fL (80-100); Monocytes Absolute Auto 600 /uL (0-900); Monocytes Percent Auto 10.3 % (3-14); Neutrophils Absolute Auto 2500 /uL (1500-7000); Neutrophils Percent Auto 45.8 % (50-75); Platelet Count 235 X10^3/uL (150-400); Red Blood Cell Count 4.55 X10^6/uL (4.5-5.9); Red Cell Distribution Width 13.4 % (11.6-14.8); White Blood Cell Count 5.5 X10^3/uL (4.5-11.0)
[2023-07-09 11:49] LABS: Alanine Aminotransferase 36 IU/L (<50); Albumin 4.5 g/dL (3.5-5.0); Albumin Globulin Ratio 1.6 (1.0-2.8); Alkaline Phosphatase 61 U/L (38-126); Aspartate Aminotransferase 35 IU/L (17-59); BUN Creatinine Ratio 22.1 (6-22); Bilirubin Total 0.9 mg/dL (0.2-1.3); Blood Urea Nitrogen 21 mg/dL (9-20); Calcium 9.4 mg/dL (8.4-10.2); Carbon Dioxide 23 mmol/L (22-32); Chloride 106 mmol/L (98-107); Estimated Glomerular Filt Rate > 60 mL/min (>60); Globulin 2.9 g/dL (1.7-4.1); Glucose 101 mg/dL (80-110); HEMOLYSIS < 15 (0-50); Potassium 4.2 mmol/L (3.4-5.1); Sodium 137 mmol/L (137-145); Total Protein 7.4 g/dL (6.3-8.2)
[2023-07-09 12:24] LABS: TSH w/ Reflex to FT4 4.64 uIU/mL (0.47-4.68)
[2023-07-10 08:25] LABS: Cholesterol HDL Ratio 2.3 ratio (0.0-5.0); Cholesterol,Total 162 mg/dL (100-199); HDL Cholesterol 72 mg/dL (>39); LDL Cholesterol Cal 74 mg/dL (0-99); PSA Ultrasensitive 0.015 ng/mL (0.000-4.000); Triglycerides 85 mg/dL (0-149); VLDL Cholesterol Cal 16 mg/dL (5-40)
== END ==
LOC: LAB 10:08
PROVIDERS: PCP Nurse Practitioner Family; Referring Provider Nurse Practitioner Family; Visit Provider Nurse Practitioner Family
DX: E78.5 Hyperlipidemia, unspecified (principal); I10 Essential (primary) hypertension; C61 Malignant neoplasm of prostate
CPT/HCPCS: 36415; 80053; 80061; 84153; 84443; 85025

== ENCOUNTER → 2023-07-27 11:38 | Outpatient (CLI) | payer MEDICARE, SELFPAY ==
--- NOTE | 2023-07-27 | DI.CT.S_ITS ---
PROCEDURE: CT CHEST WO CON INDICATIONS: Other nonspecific abnormal finding of lung field TECHNIQUE: Noncontrast 5 mm thick sections acquired from the pulmonary apices to the posterior costophrenic angles. 1 mm lung window, 5 mm thick coronal and sagittal and 7 mm axial MIP reformats were then acquired. For radiation dose reduction, the following was used: automated exposure control, adjustment of mA and/or kV according to patient size. COMPARISON: [facility], CT, CT CHEST WO CON, 06/26/2022, 11:22. FINDINGS: Image quality: Diagnostic. Lower Neck: No enlarged lymph nodes. Thyroid: Normal CT appearance. Axillae: No enlarged lymph nodes. Chest Wall: The musculature is symmetric. No suspicious mass or fluid collection. Bones: No suspicious bone lesions. Lungs and Pleura: Central and peripheral airways are normal without bronchial wall thickening or bronchiectasis. No suspicious nodules, masses, consolidations, or new ground-glass opacities. Scattered bilateral scarring. No pleural effusion or pleural calcification. Heart: Heart size is normal. No pericardial effusion. Thoracic Vessels: The aorta and pulmonary arteries demonstrate normal size. Mediastinum and [place]: No enlarged lymph nodes. Esophagus: No wall thickening. No hiatal hernia. Upper Abdomen: Visualized upper abdomen solid organs and bowel loops appear normal. IMPRESSION: No significant change in bilateral pulmonary scarring. No findings to explain right upper chest pain. Dictated by: Nargis Bailey M.D. on 07/27/2023 at 15:33 Approved by: Nargis Bailey M.D. on 07/27/2023 at 15:39
== END ==
LOC: CT 11:39
PROVIDERS: PCP Nurse Practitioner Family; Referring Provider Nurse Practitioner Family; Visit Provider Nurse Practitioner Family
DX: J98.4 Other disorders of lung (principal); R91.8 Other nonspecific abnormal finding of lung field
CPT/HCPCS: 71250

== ENCOUNTER → 2023-12-04 12:44 | Outpatient (CLI) | payer MEDICARE, SELFPAY ==
[2023-12-06 10:36] LABS: PSA Ultrasensitive 0.012 ng/mL (0.000-4.000)
== END ==
PROVIDERS: PCP Nurse Practitioner Family; Referring Provider Nurse Practitioner Family; Visit Provider Nurse Practitioner Family
DX: C61 Malignant neoplasm of prostate (principal)
CPT/HCPCS: 36415; 84153; 84154